=== PATIENT | female | born 1995 | race Hispanic/Latino ===

== ENCOUNTER 2017-08-27 19:37 | Emergency (ER) | payer BC ==
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
--- NOTE | 2017-08-27 21:02 | RAD ---
Indication: Head injury. CT of the brain was performed without contrast. Ventricular structures are midline. No midline shift is noted. The extra-axial spaces are unremarkable. There is no evidence of intracranial mass or hemorrhage. No other high or low density lesions are identified. Mastoid air cells and paranasal sinuses are otherwise unremarkable. IMPRESSION: No intracranial mass or hemorrhage is noted.
[2017-08-27 21:58] VITALS: BP 123/76
== END 2017-08-27 21:51 | disposition home or self-care (01) ==
LOC: ED 19:37
DX: S09.90XA Unspecified injury of head, initial encounter (principal); W22.8XXA Striking against or struck by other objects, initial encounter; Y93.9 Activity, unspecified; Y92.9 Unspecified place or not applicable; H53.8 Other visual disturbances
CPT/HCPCS: 70450; 99282